=== PATIENT | female | born 2000 | race Hispanic/Latino ===

== ENCOUNTER 2019-08-28 13:49 | Emergency (ER) | payer OTHER ==
[~2019-08-28] VITALS: Ht 185.4 cm; Wt 60.8 kg
[2019-08-28 13:49] VITALS: BP 119/73
[2019-08-28] MEDS ORDERED: CYCLOBENZAPRINE 10 MG TAB PO ONE (14:15)
[2019-08-28] MEDS ORDERED: KETOROLAC 60 MG/2 ML VIAL (J1885) IM ONE (14:15)
[2019-08-28] MEDS ORDERED: KETO10TAB PO (15:20)
[2019-08-28] MEDS ORDERED: CYCL10TA PO (15:20)
== END 2019-08-28 15:36 | disposition home or self-care (01) ==
LOC: M ED 13:49
DX: M54.32 Sciatica, left side (principal); M54.31 Sciatica, right side
CPT/HCPCS: 96372; 99282; J1885

== ENCOUNTER 2020-10-01 20:29 | Emergency (ER) | payer OTHER ==
[~2020-10-01] VITALS: Ht 157.5 cm; Wt 56.3 kg
[~2020-10-01 20:29] MED LIST: CYCL-707 PO; KETO10TAB PO
[2020-10-01] MEDS ORDERED: ACET-683 PO (20:38)
[2020-10-01] MEDS ORDERED: ASPI-264 PO (20:38)
[2020-10-01] MEDS ORDERED: KETOROLAC 30 MG/ML 1ML VIAL IV ONE (21:10)
[2020-10-01 21:40] LABS: BASO % 0.2 % (0.0-1.0); EOS % 0.1 % (0.0-3.0); HEMATOCRIT 32.8 % (36.0-47.0); HEMOGLOBIN 11.2 g/dl (12.0-15.5); LYMPH # 1.2 10^3/uL (1.5-5.0); LYMPH % 12.6 % (24.0-44.0); MEAN CORPUSCULAR HEMOGLOBIN 30.4 pg (27.0-33.0); MEAN CORPUSCULAR HGB CONC 34.1 g/dl (32.0-36.5); MEAN CORPUSCULAR VOLUME 89.1 fl (80.0-96.0); MONO # 0.4 10^3/uL (0.0-0.8); MONO % 4.1 % (2.0-8.0); NEUTROPHILS # 7.6 10^3/uL (1.5-8.5); NEUTROPHILS % 82.6 % (36.0-66.0); RED BLOOD COUNT 3.68 10^6/uL (4.00-5.40); WHITE BLOOD COUNT 9.2 10^3/uL (4.0-10.0)
--- NOTE | 2020-10-01 22:03 | REPVR ---
PROCEDURE INFORMATION: Exam: US Nonobstetric Pelvis; Complete Exam date and time: 10/01/2020 9:46 PM Age: 20 years old Clinical indication: Pelvic pain; Additional info: Iud verification, inserted 2 weeks ago, cramping, bleeding TECHNIQUE: Imaging protocol: Transabdominal pelvic nonobstetric ultrasound. Complete exam. Real time ultrasound with image documentation. COMPARISON: No relevant prior studies available. FINDINGS: Uterus/cervix: Uterus measures 8.7 x 3.2 x 5.8 cm. IUD located centrally within the endometrial cavity. The endometrial echo complex measures 6 mm maximally. Right adnexa: Right ovary measures 1.9 x 1.3 x 2.5 cm. Normal flow. Left adnexa: Left ovary measures 3.7 x 3.4 x 2.8 cm. Normal flow. Non complex cyst measures 2.4 x 2.3 x 3 cm likely representing a functional cyst. Intraperitoneal space: No intraperitoneal fluid. Urinary bladder: Normal. IMPRESSION: Unremarkable examination status post insertion of IUD. Electronically signed by: Jah Gregory On 10/01/2020 22:03:15 PM
[2020-10-01 22:14] LABS: PLATELET COUNT, AUTOMATED 68 10^3/uL (150-450)
[2020-10-01 22:23] VITALS: BP 125/67
== END 2020-10-01 22:28 | disposition home or self-care (01) ==
LOC: M ED 20:29
DX: N92.6 Irregular menstruation, unspecified (principal); Z97.5 Presence of (intrauterine) contraceptive device
CPT/HCPCS: 76856; 84702; 85025; 85049; 85055; 86850; 86900; 86901; 93976; 96374; 99284; J1885

== ENCOUNTER 2021-05-28 11:47 | Emergency (ER) | payer OTHER, SELFPAY ==
[~2021-05-28] VITALS: Ht 157.5 cm; Wt 56.8 kg
[~2021-05-28 11:47] MED LIST changes: +ACET-683 PO; +ASPI-264 PO
[2021-05-28] MEDS ORDERED: MOTR200T44 PO (12:00)
[2021-05-28] MEDS ORDERED: ONDANSETRON 4 MG ORAL DISINTEGRATING TAB PO ONE (13:15)
[2021-05-28] MEDS ORDERED: ACETAMINOPHEN 325 MG TAB PO ONE (13:15)
[2021-05-28] MEDS ORDERED: ZOFR4TAB16 PO (13:16)
[2021-05-28 13:37] VITALS: BP 116/69
== END 2021-05-28 13:45 | disposition home or self-care (01) ==
LOC: M ED 11:47
DX: S06.0X0A Concussion without loss of consciousness, initial encounter (principal); W00.0XXA Fall on same level due to ice and snow, initial encounter; Y92.018 Other place in single-family (private) house as the place of occurrence of the external cause
CPT/HCPCS: 70450; 72125; 99284; Q0162

== ENCOUNTER → 2022-01-25 | Outpatient (CLI) | payer OTHER ==
[~2022-01-25] MED LIST changes: +ATOM40CA2 PO; +BUPR-69 PO; +ESCI5SOL3 PO; +MOTR200T44 PO; +ZOFR4TAB16 PO
== END ==
LOC: M RAD 08:17
PROVIDERS: ATTEND Internal Medicine Medical Oncology
DX: D69.6 Thrombocytopenia, unspecified (principal)